=== PATIENT | female | born 1965 | race Caucasian/White ===

== ENCOUNTER 2018-05-14 07:52 | Emergency (ER) | payer OTHER ==
[~2018-05-14] VITALS: Ht 160 cm; Wt 69.8 kg
[2018-05-14] MEDS ORDERED: LEXAPRO10 MG PO (08:08)
[2018-05-14] MEDS ORDERED: TRAZODONE HCL50 MG PO (08:08)
== END 2018-05-14 08:53 | disposition home or self-care (01) ==
LOC: ED 07:52
DX: S63.502A Unspecified sprain of left wrist, initial encounter (principal); W00.9XXA Unspecified fall due to ice and snow, initial encounter; Z88.8 Allergy status to other drugs, medicaments and biological substances; Z88.5 Allergy status to narcotic agent; Z79.899 Other long term (current) drug therapy
CPT/HCPCS: 29125; 73130; 99283-25

== ENCOUNTER 2022-04-04 08:49 | Emergency (ER) | payer BC ==
[~2022-04-04] VITALS: Ht 160 cm; Wt 69.8 kg
[~2022-04-04 08:49] MED LIST: LEXAPRO10 MG PO; TRAZODONE HCL50 MG PO
[2022-04-04] MEDS ORDERED: PROTONIX40 MG PO (11:13)
== END 2022-04-04 11:33 | disposition home or self-care (01) ==
LOC: ED 08:49
DX: K27.9 Peptic ulcer, site unspecified, unspecified as acute or chronic, without hemorrhage or perforation (principal); Z90.49 Acquired absence of other specified parts of digestive tract; Z88.8 Allergy status to other drugs, medicaments and biological substances; Z88.5 Allergy status to narcotic agent; Z79.899 Other long term (current) drug therapy
CPT/HCPCS: 36415; 74177; 80053; 81001; 83690; 85025; 99284-25; Q9967